=== PATIENT | female | born 1950 | race Caucasian/White ===

== ENCOUNTER 2021-03-03 19:13 | Emergency (ER) | payer MEDICARE, OTHER ==
[~2021-03-03] VITALS: Ht 167.6 cm; Wt 70.9 kg
[2021-03-03 19:33] LABS: HEMOGLOBIN 12.4 g/dL (12.5-16.0); MEAN CELL VOLUME 85 fl (78-100); MEAN CORPUSCULAR HEMOGLOBIN 28 pg (27-31); MEAN CORPUSCULAR HGB CONC 33 g/dL (33-37); MEAN PLATELET VOLUME 9.1 fl (7.4-10.4); PLATELET COUNT 395 K/mm3 (130-400); RED BLOOD COUNT 4.45 M/mm3 (4.10-5.30); RED CELL DISTRIBUTION WIDTH 12.9 % (11.5-14.5)
[2021-03-03 19:45] LABS: ALBUMIN 3.7 g/dL (3.4-4.8)
[2021-03-03] MEDS ORDERED: METHOCARBAMOL500 M1 PO (19:45)
[2021-03-03 19:46] LABS: POTASSIUM 3.8 mmol/L (3.5-5.1)
[2021-03-03] MEDS ORDERED: LOSARTAN POTAS100 MG PO (19:46)
[2021-03-03 19:48] LABS: TOTAL PROTEIN 7.2 g/dL (6.2-8.1)
[2021-03-03] MEDS ORDERED: DICLOFENAC SOD50 MG PO (19:48)
[2021-03-03 19:49] LABS: WHITE BLOOD COUNT 27.1 K/mm3 (4.8-10.8)
[2021-03-03 19:50] LABS: TOTAL BILIRUBIN 0.4 mg/dL (0.2-1.2)
[2021-03-03] MEDS ORDERED: LEVOTHYROXINE0.05 MG PO (19:50)
[2021-03-03] MEDS ORDERED: SEROQUEL50 MG PO (19:51)
[2021-03-03] MEDS ORDERED: LEVOTHYROXIN0.075 MG PO (19:51)
[2021-03-03] MEDS ORDERED: GOOD NEIGHBOR P20 M1 PO (19:52)
[2021-03-03] MEDS ORDERED: CIPRO500 M1 PO (19:55)
[2021-03-03 20:16] LABS: LYMPHOCYTE 12 % (20-51); MONOCYTE 10 % (3-10); NEUTROPHILS 77 % (42-75)
[2021-03-03 21:09] LABS: URINE APPEARANCE CLOUDY; URINE BILIRUBIN NEGATIVE (NEGATIVE); URINE BLOOD 50 ery/uL (NEGATIVE); URINE COLOR YELLOW; URINE GLUCOSE NEGATIVE (NEGATIVE); URINE KETONE NEGATIVE (NEGATIVE); URINE LEUKOCYTE ESTERASE 2+ (NEGATIVE); URINE NITRATE NEGATIVE (NEGATIVE); URINE PROTEIN(semi-quant) 3+ (NEGATIVE); URINE UROBILINOGEN NORMAL (NORMAL)
[2021-03-03 21:10] LABS: URINE WBC >50 /hpf (0-3)
[2021-03-04 06:45] LABS: HEMATOCRIT 31.3 % (37.0-47.0); HEMOGLOBIN 10.3 g/dL (12.5-16.0); MEAN CELL VOLUME 86 fl (78-100); MEAN CORPUSCULAR HEMOGLOBIN 28 pg (27-31); MEAN CORPUSCULAR HGB CONC 33 g/dL (33-37); MEAN PLATELET VOLUME 9.6 fl (7.4-10.4); PLATELET COUNT 323 K/mm3 (130-400); RED BLOOD COUNT 3.63 M/mm3 (4.10-5.30); RED CELL DISTRIBUTION WIDTH 13.4 % (11.5-14.5)
[2021-03-04 06:51] LABS: WHITE BLOOD COUNT 23.9 K/mm3 (4.8-10.8)
[2021-03-04 06:55] LABS: ALBUMIN 2.8 g/dL (3.4-4.8)
[2021-03-04 06:56] LABS: POTASSIUM 4.1 mmol/L (3.5-5.1)
[2021-03-04 06:57] LABS: CALCIUM 7.7 mg/dL (8.3-10.5)
[2021-03-04 06:58] LABS: TOTAL PROTEIN 5.4 g/dL (6.2-8.1)
[2021-03-04 06:59] LABS: BAND 2 % (0-10); LYMPHOCYTE 7 % (20-51); MONOCYTE 14 % (3-10); NEUTROPHILS 77 % (42-75)
[2021-03-04 07:00] LABS: TOTAL BILIRUBIN 0.2 mg/dL (0.2-1.2)
[2021-03-04 15:00] VITALS: BP 121/73
== END 2021-03-04 15:00 | disposition other institution (70) ==
LOC: ED 19:13
PROVIDERS: Nurse Practitioner
DX: N12 Tubulo-interstitial nephritis, not specified as acute or chronic (principal); N17.9 Acute kidney failure, unspecified; E03.9 Hypothyroidism, unspecified; Z90.49 Acquired absence of other specified parts of digestive tract; Z88.1 Allergy status to other antibiotic agents; Z88.2 Allergy status to sulfonamides; Z20.822 Contact with and (suspected) exposure to COVID-19
CPT/HCPCS: J0696; J2405; J2550; J3010; J7030

== ENCOUNTER 2021-03-04 07:36 | Inpatient (IN) | payer MEDICARE, OTHER ==
[~2021-03-04] VITALS: Ht 167.6 cm; Wt 85.4 kg
[~2021-03-04 07:36] MED LIST: CIPRO500 M1 PO; DICLOFENAC SOD50 MG PO; GOOD NEIGHBOR P20 M1 PO; LEVOTHYROXIN0.075 MG PO; LEVOTHYROXINE0.05 MG PO; LOSARTAN POTAS100 MG PO; METHOCARBAMOL500 M1 PO; SEROQUEL50 MG PO
[2021-03-04 09:22] VITALS: BP 100/59
[2021-03-04 12:00] VITALS: BP 121/73
[2021-03-04 18:30] VITALS: BP 125/48
[2021-03-04 22:40] VITALS: BP 100/67
[2021-03-05] VITALS (7 sets, daily range): BP systolic 92–123; BP diastolic 60–80
[2021-03-05 07:06] LABS: HEMATOCRIT 33.3 % (37.0-47.0); HEMOGLOBIN 10.9 g/dL (12.5-16.0); MEAN CELL VOLUME 87 fl (78-100); MEAN CORPUSCULAR HEMOGLOBIN 28 pg (27-31); MEAN CORPUSCULAR HGB CONC 33 g/dL (33-37); MEAN PLATELET VOLUME 9.8 fl (7.4-10.4); PLATELET COUNT 322 K/mm3 (130-400); RED BLOOD COUNT 3.84 M/mm3 (4.10-5.30); RED CELL DISTRIBUTION WIDTH 13.9 % (11.5-14.5); WHITE BLOOD COUNT 18.7 K/mm3 (4.8-10.8)
[2021-03-05 07:17] LABS: ALBUMIN 2.6 g/dL (3.4-4.8); POTASSIUM 3.9 mmol/L (3.5-5.1)
[2021-03-05 07:18] LABS: CALCIUM 7.9 mg/dL (8.3-10.5)
[2021-03-05 07:19] LABS: TOTAL PROTEIN 5.5 g/dL (6.2-8.1)
[2021-03-05 07:21] LABS: TOTAL BILIRUBIN 0.3 mg/dL (0.2-1.2)
[2021-03-05 07:25] LABS: LYMPHOCYTE 5 % (20-51); MONOCYTE 13 % (3-10); NEUTROPHILS 80 % (42-75)
[2021-03-05 07:26] LABS: BAND 1 % (0-10)
[2021-03-06 02:07] VITALS: BP 115/76
[2021-03-06 06:02] VITALS: BP 100/65
[2021-03-06 06:54] LABS: BASO # 0.04 K/mm3 (0.02-0.10); EOS # 0.12 K/mm3 (0.04-0.40); EOS % 0.9 % (1.0-5.0); HEMATOCRIT 31.9 % (37.0-47.0); HEMOGLOBIN 10.5 g/dL (12.5-16.0); LYMPH# 1.18 K/mm3 (1.50-4.00); MEAN CELL VOLUME 86 fl (78-100); MEAN CORPUSCULAR HEMOGLOBIN 28 pg (27-31); MEAN CORPUSCULAR HGB CONC 33 g/dL (33-37); MEAN PLATELET VOLUME 10.2 fl (7.4-10.4); MONO # 1.32 K/mm3 (0.20-0.80); NEU # 9.85 K/mm3 (1.40-6.50); PLATELET COUNT 284 K/mm3 (130-400); RED CELL DISTRIBUTION WIDTH 14.2 % (11.5-14.5); WHITE BLOOD COUNT 13.1 K/mm3 (4.8-10.8)
[2021-03-06 07:02] LABS: ALBUMIN 2.5 g/dL (3.4-4.8); POTASSIUM 3.7 mmol/L (3.5-5.1)
[2021-03-06 07:05] LABS: TOTAL PROTEIN 5.2 g/dL (6.2-8.1)
[2021-03-06 07:06] LABS: TOTAL BILIRUBIN 0.2 mg/dL (0.2-1.2)
[2021-03-06 09:51] VITALS: BP 120/62
[2021-03-06 14:50] VITALS: BP 110/72
[2021-03-06 18:24] VITALS: BP 121/78
[2021-03-06 21:44] VITALS: BP 111/69
[2021-03-07 01:13] VITALS: BP 124/80
[2021-03-07 05:57] VITALS: BP 109/72
[2021-03-07 10:00] VITALS: BP 138/83
[2021-03-07 10:53] LABS: HEMATOCRIT 36.2 % (37.0-47.0); HEMOGLOBIN 11.9 g/dL (12.5-16.0); MEAN CELL VOLUME 85 fl (78-100); MEAN CORPUSCULAR HEMOGLOBIN 28 pg (27-31); MEAN CORPUSCULAR HGB CONC 33 g/dL (33-37); PLATELET COUNT 348 K/mm3 (130-400); RED BLOOD COUNT 4.24 M/mm3 (4.10-5.30); RED CELL DISTRIBUTION WIDTH 14.6 % (11.5-14.5)
[2021-03-07 10:56] LABS: ALBUMIN 2.8 g/dL (3.4-4.8)
[2021-03-07 10:57] LABS: POTASSIUM 3.8 mmol/L (3.5-5.1)
[2021-03-07 10:58] LABS: CALCIUM 8.5 mg/dL (8.3-10.5)
[2021-03-07 10:59] LABS: TOTAL PROTEIN 5.7 g/dL (6.2-8.1)
[2021-03-07 11:01] LABS: TOTAL BILIRUBIN 0.2 mg/dL (0.2-1.2)
[2021-03-07 12:22] LABS: BAND 3 % (0-10); LYMPHOCYTE 9 % (20-51); MONOCYTE 15 % (3-10); NEUTROPHILS 73 % (42-75)
== END 2021-03-07 10:25 | disposition home health service (06) | DRG 690 ==
LOC: MED/SURG 07:36
PROVIDERS: Nurse Practitioner; Physician Assistant; ADMIT Nurse Practitioner
DX: N39.0 Urinary tract infection, site not specified (principal); E87.1 Hypo-osmolality and hyponatremia; N17.9 Acute kidney failure, unspecified; N12 Tubulo-interstitial nephritis, not specified as acute or chronic; E03.9 Hypothyroidism, unspecified; B96.20 Unspecified Escherichia coli [E. coli] as the cause of diseases classified elsewhere; Z90.710 Acquired absence of both cervix and uterus; Z90.49 Acquired absence of other specified parts of digestive tract; Z88.0 Allergy status to penicillin; Z88.2 Allergy status to sulfonamides
CPT/HCPCS: J0696; J2185; J2270; J2405; J3010; J7030; Q9967

== ENCOUNTER 2021-03-16 15:50 | Outpatient (RCR) | payer MEDICARE, OTHER ==
[2021-03-07 14:22] VITALS: BP 154/80
[2021-03-08 16:12] VITALS: BP 154/90
[2021-03-09 16:07] VITALS: BP 146/87
[2021-03-10 16:20] VITALS: BP 157/83
[2021-03-11 18:10] VITALS: BP 145/84
[2021-03-12 16:09] VITALS: BP 158/92
[2021-03-13 16:55] VITALS: BP 145/75
[2021-03-14 16:00] VITALS: BP 169/83
[2021-03-15 16:43] VITALS: BP 164/94
[~2021-03-16] VITALS: Ht 167.6 cm; Wt 85.4 kg
[2021-03-16 15:55] VITALS: BP 144/82
[2021-04-11] MEDS ORDERED: NEBIVOLOL HCL2.5 MG PO (15:58)
== END 2021-03-17 | disposition home or self-care (01) ==
LOC: AMSURD
DX: B96.20 Unspecified Escherichia coli [E. coli] as the cause of diseases classified elsewhere (principal); N28.9 Disorder of kidney and ureter, unspecified
CPT/HCPCS: J1335

== ENCOUNTER 2021-03-31 15:49 | Outpatient (RCR) | payer MEDICARE, OTHER ==
--- NOTE | 2021-03-22 15:27 | NUR ---
Pt was scheduled for a PICC removal but when she came in states that she has a concern with urination that she will be going to the doctor for on wednesday and would like to wait to have the PICC pulled until she is sure that she will not need it. Pt did get a PICC dressing change. Current dressing was half way off and insertion site was exposed. New dressing placed and new arm band was placed on it. Pt notified to let doctor know on wednesday that the insertion site was exposed. Pt and [id number] state understanding. Pt will call with an update on when she will be getting the PICC pulled.
[2021-03-25 17:52] VITALS: BP 145/81
[2021-03-26 16:17] VITALS: BP 151/79
[2021-03-27 16:18] VITALS: BP 149/104
[2021-03-27 17:00] VITALS: BP 160/81
[2021-03-28 16:33] VITALS: BP 132/83
--- NOTE | 2021-03-28 16:35 | NUR ---
Pt PICC to SU[facility]NE no blood return after utilizing 8 flushes, head up, down, arm up, down, turned head to the left, coughed...etc. No blood return but flushes well. Zoë and Dr. Nicole ordered CXR for placement confimration and INT started to RFA in the meantime to complete transfusion. Pt tolerated well, CXR completed, awaiting results, pt resting in bed with son at bedside.
[2021-03-28 17:06] VITALS: BP 148/77
[2021-03-29 14:08] VITALS: BP 131/71
[2021-03-30 16:15] VITALS: BP 140/75
[~2021-03-31] VITALS: Ht 167.6 cm; Wt 85.4 kg
[2021-03-31 15:56] VITALS: BP 134/70
[2021-03-31 16:30] VITALS: BP 145/76
== END 2021-03-31 17:08 | disposition home or self-care (01) ==
LOC: AMSURD 15:49
DX: N28.9 Disorder of kidney and ureter, unspecified (principal); B96.20 Unspecified Escherichia coli [E. coli] as the cause of diseases classified elsewhere
CPT/HCPCS: J1335

== ENCOUNTER → 2021-04-14 | Outpatient (RCR) | payer MEDICARE, OTHER ==
[2021-04-11 15:58] VITALS: BP 133/66
[2021-04-12 14:31] VITALS: BP 137/80
[2021-04-13 11:59] VITALS: BP 113/80
[~2021-04-14] VITALS: Ht 167.6 cm; Wt 85.4 kg
[~2021-04-14] MED LIST changes: +NEBIVOLOL HCL2.5 MG PO
[2021-04-14 09:02] VITALS: BP 118/63
== END ==
LOC: AMSURD
DX: N39.0 Urinary tract infection, site not specified (principal); B96.20 Unspecified Escherichia coli [E. coli] as the cause of diseases classified elsewhere
CPT/HCPCS: J1335